=== PATIENT | female | born 1990 | race African-American/Black ===

== ENCOUNTER 2020-09-24 10:23 | Emergency (ER) | payer OTHER ==
[~2020-09-24] VITALS: Ht 165.1 cm; Wt 109.5 kg
[2020-09-24 11:11] LABS: COLLECTION METHOD CLEAN CATCH
[2020-09-24 11:18] LABS: MUCOUS Present /lpf; PH 6 (5-8); URINE APPEARANCE Hazy; URINE BACTERIA Rare /hpf; URINE BILIRUBIN Negative (NEGATIVE); URINE BLOOD 2+ (NEGATIVE); URINE COLOR Yellow; URINE GLUCOSE Negative (NEGATIVE); URINE KETONE Negative (NEGATIVE); URINE LEUKOCYTE ESTERASE Negative (NEGATIVE); URINE NITRATE Negative (NEGATIVE); URINE PROTEIN(semi-quant) Negative (NEGATIVE); URINE UROBILINOGEN Negative (NEGATIVE)
[2020-09-24] MEDS ORDERED: LO LOESTRIN FE1 TAB PO (11:40)
[2020-09-24] MEDS ORDERED: BENADRYL50 MG PO (11:40)
[2020-09-24 11:53] LABS: BASO % 0.4 % (0.0-2.0); EOS % 0.1 % (0-4.0); GRAN # 6.1 (1.4-6.5); GRAN % 62.3 % (42.2-75.2); HEMATOCRIT 42.4 % (37.0-47.0); HEMOGLOBIN 14.3 g/dl (12.5-16.0); LYMPH # 2.8 (1.2-3.4); LYMPH % 28.1 % (20.0-51.0); MEAN CELL VOLUME 85 fl (80.0-100.0); MEAN CORPUSCULAR HEMOGLOBIN 29 pg (27.0-31.0); MEAN CORPUSCULAR HGB CONC 34 g/dl (33.0-37.0); MEAN PLATELET VOLUME 10.4 fl (7.4-10.4); MONO # 0.8 (0.1-0.6); MONO % 8.5 % (1.7-9.3); PLATELET COUNT 240 K/mm3 (130-400); RED BLOOD COUNT 4.97 M/mm3 (4.10-5.30)
[2020-09-24 11:57] LABS: ALBUMIN 4.3 gm/dL (3.5-5.0); BILIRUBIN,TOTAL 0.4 mg/dL (0.0-1.0); CALCIUM 9.4 mg/dL (8.4-10.2); CREATININE, serum 0.96 (0.52-1.25); POTASSIUM 3.4 mmol/L (3.4-5.0); TOTAL PROTEIN 8.3 gm/dL (6.4-8.2)
[2020-09-24 12:37] VITALS: BP 110/71; PULSE 82; TEMP 98.2
== END 2020-09-24 12:37 | disposition home or self-care (01) ==
LOC: COL.ER 10:23
PROVIDERS: Physician Assistant
DX: R07.89 Other chest pain (principal); F41.9 Anxiety disorder, unspecified; Z87.891 Personal history of nicotine dependence
CPT/HCPCS: J2060

== ENCOUNTER 2020-11-15 10:29 | Day surgery (SDC) | payer OTHER ==
[~2020-11-15] VITALS: Ht 165.1 cm; Wt 101.2 kg
[~2020-11-15 10:29] MED LIST: BENADRYL50 MG PO; LO LOESTRIN FE1 TAB PO
[2020-11-15 11:03] VITALS: BP 136/84; PULSE 120; TEMP 97.9
[2020-11-15] MEDS ORDERED: ALLEGRA 180MG180 MG PO (11:27)
[2020-11-15] MEDS ORDERED: CLARITIN 1010 MG/TAB PO (11:27)
[2020-11-15 12:50] VITALS: BP 113/78; PULSE 86
--- NOTE | 2020-11-15 12:50 | NUR ---
Patient returned to [facility] via cart. Postop vital signs started. Patient agrees to try water and applesauce. Patient walked to bathroom with slow steady gait and was able to void. Will continue to monitor.
[2020-11-15 13:05] VITALS: BP 117/86; PULSE 95
--- NOTE | 2020-11-15 13:05 | NUR ---
Patient sitting up in chair, denies discomfort. Vital signs remain stable. Tolerating food and drink well. Will continue to monitor.
[2020-11-15 13:20] VITALS: BP 122/85; PULSE 86
--- NOTE | 2020-11-15 13:20 | NUR ---
Patient is sitting up in the chair, denies any discomfort. Vital signs stable, tolerating food and drink well. Patient asked if she would be able to speak with physician, offered for patient to stay and wait for physician to return or to call physician office if more information is needed. Patient agrees to call office for any questions. Reviewed discharge instructions and education materials, patient verbalized understanding.
--- NOTE | 2020-11-15 13:35 | NUR ---
Discontinued IV with no complications. Instructed patient to dress and call out for transportation.
--- NOTE | 2020-11-15 13:42 | NUR ---
Patient transfered personal vehicle via wheelchair by endo staff.
== END 2020-11-15 13:42 | disposition home or self-care (01) ==
LOC: SDCO 10:29
DX: K21.00 Gastro-esophageal reflux disease with esophagitis, without bleeding (principal); R19.7 Diarrhea, unspecified; F41.9 Anxiety disorder, unspecified; Z87.891 Personal history of nicotine dependence; Z79.899 Other long term (current) drug therapy; Z79.891 Long term (current) use of opiate analgesic
CPT/HCPCS: J2704; J7120